=== PATIENT | male | born 2000 | race Caucasian/White ===

== ENCOUNTER 2023-01-09 09:37 | Day surgery (SDC) | payer OTHER ==
[2023-01-07 11:32] LABS: Absolute Lymphocytes (CBC) 2.4 K/uL (0.7-4.9); Hematocrit 44.6 % (39.6-49.0); Lymphocytes % 27.4 % (15.3-44.8); MCV 93.5 fL (80-100); MPV 7.6 fL (7.6-11.3); RBC Red Blood Cell Count 4.77 M/uL (4.33-5.43)
[2023-01-07 11:47] LABS: Potassium 4.1 mEq/L (3.5-5.1)
[2023-01-09] MEDS ORDERED: CEFAZOLIN SODIUM 1 GM/VIAL ONE (10:35)
[2023-01-09] MEDS ORDERED: Ringers Lactate 1,000 ML IV ONE (10:35)
[2023-01-09] MEDS ORDERED: MIDAZOLAM HCL 2 MG/2 ML INJ ONE (10:57)
[2023-01-09] MEDS ORDERED: LIDOCAINE 1% MPF 5 ML VIAL ONE (10:57)
[2023-01-09] MEDS ORDERED: dexAMETHasone 10 MG/ML VIAL ONE ×2 (10:57→11:36)
[2023-01-09] MEDS ORDERED: FENTANYL CITR 100 MCG/2 ML ONE (10:57)
[2023-01-09] MEDS ORDERED: EPINEPHRINE/PF 1 MG/ML AMP ONE (10:58)
[2023-01-09] MEDS ORDERED: propofoL 200 MG/20 ML VIAL IV ONE (11:35)
[2023-01-09] MEDS ORDERED: KETOROLAC 30 MG/ML INJ ONE (11:36)
[2023-01-09] MEDS ORDERED: LIDOCAINE 2% MPF 5 ML VIAL ONE (11:36)
[2023-01-09] MEDS ORDERED: ONDANSETRON 4 MG/2 ML VIAL ONE (11:37)
[2023-01-09] MEDS ORDERED: NS 0.9% VIAL 10 ML ONE (11:50)
[2023-01-09] MEDS: HYDROMORPHONE HCL 1 MG/ML INJ ONE ×2 (13:56→14:03)
--- NOTE | 2023-01-09 13:59 | OP ---
Date of Procedure: 01/09/2023 Surgeon: Elia Pablo MD Preoperative Diagnosis: Left Corcoran C ankle fracture with probable syndesmotic disruption. Postoperative Diagnoses: 1.Left Corcoran C ankle fracture of the fibula. 2.Syndesmotic disruption. Procedure: Left lateral fibular open reduction and internal fixation using the Acumed set and also s yndesmosis reduction and fixation using the Acumed unlocked screw. Estimated Blood Loss: Less than 10 cc. Complications: There were no complications. Specimen: No pathology specimens sent. Indications: The patient is a 22-year-old male, who unfortunately injured his left ankle. He was se en and examined at outside facility where x-rays were taken, which demonstrated an obvious disruption of the lateral malleolus with Corcoran C ankle fracture as well as widening of syndesmosis and widening of the medial clear space. He was then discussed operative intervention including the possibility o f syndesmotic screw. He states he understands things as presented and wishes to proceed. Description Of Procedure: The patient got a block in the preop holding area and was taken to the ope rating room. He was then placed in a supine position. General anesthesia was obtained by the staff. Following this, a well-padded tourniquet was placed on superior left thigh. Left lower extremity w as then prepped and draped in the usual sterile fashion procedure. Following this, the C-arm was bro ught in to ensure we got good views. After this, a standard lateral incision was taken down carefull y through skin and soft tissues. Meticulous hemostasis being maintained using Bovie electrocautery. This leads down to the fracture site. Fracture site has very long oblique fracture. It was felt to be best treated using bridging tight fixation holding the fracture clamp as this area of the fibula does get quite small. Therefore, the Acumed plate was then applied in standard fashion, holding redu ction with reduction clamp and ensuring this was reduced on C-arm views. After this, a clamp was the n used to gently compress the medial and lateral malleoli closing down the syndesmotic clear space an d medial clear space. After this, the syndesmosis screw was then placed in standard fashion. This w as not placed using lag technique, but appears to hold the syndesmosis well. Following this, the wou nd was irrigated. It was then closed using interrupted Vicryl sutures followed by lennie. The femi ent was then placed in a well-padded sterile dressing as well as a posterior splint and U. The patie nt was then taken to recovery room. CHRISTIANO Voice ID: [id number] Report ID: [id number]
--- NOTE | 2023-01-09 14:02 | RAD REPORT ---
EXAM DESCRIPTION: RAD - Fluoroscopy <1 Hour - 01/09/2023 1:53 pm CLINICAL HISTORY: LT LATERAL MALLEOUS SYNDOMOSIS COMPARISON: <Comparisons> FINDINGS: Fluoroscopy time: 0.6 minutes
[2023-01-09 15:56] VITALS: BP 128/65; TEMP 97.8; O2SAT 96
== END 2023-01-09 15:13 | disposition home or self-care (01) ==
LOC: OR 09:37 → EDBD 12:00 → OR 15:13
PROVIDERS: ATTEND Orthopaedic Surgery
PROC: 0QSK04Z Reposition Left Fibula with Internal Fixation Device, Open Approach (ICD-10-PCS; principal; 2023-01-09 12:00)
DX: S82.61XA Displaced fracture of lateral malleolus of right fibula, initial encounter for closed fracture (principal); S93.432A Sprain of tibiofibular ligament of left ankle, initial encounter; M25.572 Pain in left ankle and joints of left foot; F17.210 Nicotine dependence, cigarettes, uncomplicated; E66.9 Obesity, unspecified
CPT/HCPCS: 36415; 76000; 80048; 85025; 93005; A4216; J0171; J0690; J1100; J1170; J2001; J2250; J2405; J2704; J3010; J7120